=== PATIENT | male | born 1950 | race Caucasian/White ===

== ENCOUNTER 2016-11-25 08:38 | Inpatient (IN) ==
--- NOTE | 2016-11-22 21:49 | Discharge Summary ---
<Silvia Bah - Last Filed: 11/24/16 16:25> Date of Encounter: 11/24/16 - Discharge Diagnosis (1) Arthritis of knee, left Priority: Primary Status: Acute (2) History of DVT (deep vein thrombosis) Priority: Secondary Status: Acute Comments: Bridged with Lovenox and will continue Lovenox at discharge x 10 days along with resuming Coumadin (3) HTN (hypertension) Priority: Secondary Status: Chronic Qualifiers: Hypertension type: essential hypertension Qualified Code(s): I10 - Essential (primary) hypertension (4) DMII (diabetes mellitus, type 2) Priority: Secondary Status: Chronic Qualifiers: Diabetes mellitus complication status: with unspecified complications Diabetes mellitus fpc insulin use: with long term care administrator use Qualified Code(s) : E11.8 - Type 2 diabetes mellitus with unspecified complications; Z79.4 - USP (current) use of insulin (5) HLD (hyperlipidemia) Status: Acute (6) Obesity Priority: Secondary Status: Chronic Qualifiers: Obesity type: unspecified obesity type Obesity severity: morbid Qualified Code(s): E66.01 - Morbid (severe) obesity due to excess calories - Discharge Medications Home Medications: OxyCODONE Immed Rel [Roxicodone 5 MG] 5 - 10 mg PO Q6HR PRN #40 tablet 11/22/16 [Rx] Enoxaparin [Lovenox] 30 mg SQ Q12HR #20 syr 11/24/16 [Rx] Amlodipine Besylate 10 mg PO DAILY 11/25/16 [History] Aspirin Enteric Coated [Aspirin EC] 81 mg PO DAILY 11/25/16 [History] Atorvastatin Calcium [Lipitor] 20 mg PO DAILY 11/25/16 [History] Enoxaparin [Lovenox] 30 mg SQ Q12HR 11/25/16 [History] Furosemide [Lasix] 40 mg PO DAILY 11/25/16 [History] GlipiZIDE [Glipizide] 10 mg PO BID 11/25/16 [History] Insulin Glargine,Hum.rec.anlog [Lantus Solostar] 80 unit SQ HS 11/25/16 [History ] Meloxicam [Mobic] 15 mg PO DAILY 11/25/16 [History] Metformin HCl [Glucophage] 1,000 mg PO BID 11/25/16 [History] Multivitamin [One Daily Multivitamin] 1 each PO DAILY 11/25/16 [History] Valsartan [Diovan] 320 mg PO DAILY 11/25/16 [History] Warfarin [Coumadin] 10 mg PO SUTHFRSA 11/25/16 [History] Warfarin [Coumadin] 15 mg PO MOTUWE 11/25/16 [History] Allergies/Adverse Reactions: Allergies cephalexin [From Keflex] Adverse Reaction (Verified 11/25/16 10:03) Hives Penicillins [PCN] Adverse Reaction (Verified 11/25/16 10:03) Hives Primary care physician: Pramod Ordonez, - Patient Status Disposition: Transfer Inpatient Rehab Fac Condition: Good - Discharge Instructions Follow Up With: Pramod Ordonez DO [Primary Care Provider] - - Hospital Course Hospital course: Mr. Ledesma is a 66 year old male - Time Spent with Patient Total time spent providing and/or coordinating discharge services: <Thiago Sweeney - Last Filed: 11/28/16 06:45> Date of Encounter: 11/28/16 Time of Encounter: 06:44 - Discharge Diagnosis (1) Arthritis of knee, left Priority: Primary Status: Acute (2) HLD (hyperlipidemia) Priority: Secondary Status: Acute Qualifiers: Hyperlipidemia type: unspecified Qualified Code(s): E78.5 - Hyperlipidemia , unspecified (3) History of DVT (deep vein thrombosis) Priority: Secondary Status: Acute (4) DMII (diabetes mellitus, type 2) Priority: Secondary Status: Chronic Qualifiers: Diabetes mellitus complication status: with unspecified complications Diabetes mellitus long term care administrator insulin use: with long term care administrator use Qualified Code(s) : E11.8 - Type 2 diabetes mellitus with unspecified complications; Z79.4 - USP (current) use of insulin (5) HTN (hypertension) Priority: Secondary Status: Chronic Qualifiers: Hypertension type: essential hypertension Qualified Code(s): I10 - Essential (primary) hypertension (6) Obesity Priority: Secondary Status: Chronic Qualifiers: Obesity type: unspecified obesity type Obesity severity: morbid Qualified Code(s): E66.01 - Morbid (severe) obesity due to excess calories Primary care physician: Pramod Ordonez, - Patient Status Functional capacity at discharge: uses cane/walker Overall status at discharge: patient is progressing back to baseline - Hospital Course Hospital course: Mr. Ledesma is a 66 year old male uneventful postop, DC stable condition, patient on anticoagualtion for history of DVT - Time Spent with Patient Total time spent providing and/or coordinating discharge services:
--- NOTE | 2016-11-25 09:09 | History & Physical Report ---
Date of Encounter: 11/25/16 Time of Encounter: 09:07 24 Hour HP Update - Instructions Instructions: If the History and Physical is less than 30 days old and was completed prior to A.M. admission and or procedure and has NOT been updated on calendar day of procedure please complete this update prior to performing procedure. - Update Patient reports changes in Medical Condition: No Changes in assessment/condition: No Changes in Medication: No Preop tests/diagnostics Reviewed: Yes Surgery Remains Indicated: Yes Consent for Planned Operative Procedure(s) Verified: Yes - Pre-Operative Checklist Preoperative Checklist Indicated: No Prophylactic Antibiotic Ordered: Yes Is VTE Prophylaxis Indicated?: Yes (Patient was elevated A1c of 8.4 significant disabling knee pain risk of elevated A1c is minimal compared to patient's pain and suffering believe is acceptable risk to proceed with total knee replacement surgery.)
--- NOTE | 2016-11-25 09:22 | Anesthesia Evaluation PreOp ---
Date of Encounter: 11/25/16 Time of Encounter: 09:20 - Past History Planned Operation: L TKA Cardiac History: CHF (actos induced, resolved. 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 History: Denies Any Significant HX Other Medical History: Diabetes Type II, Other (factor V leiden) Anesthesia History: No Prior Anesthetic Complications, Past Anesthesia (t&a, cholecyst, r aleta) Alcohol Use: none Drug use: none Medications and Allergies OxyCODONE Immed Rel [Roxicodone 5 MG] 5 - 10 mg PO Q6HR PRN #40 tablet 11/22/16 [Rx] Enoxaparin [Lovenox] 30 mg SQ Q12HR #20 syr 11/24/16 [Rx] Allergies cephalexin [From Keflex] Adverse Reaction (Unverified 11/13/16 15:32) See Comments Penicillins [PCN] Adverse Reaction (Unverified 11/13/16 15:32) See Comments - Meds/Allergy Pre-op Review Medications Reviewed: Yes (coumadin off x 5days) Allergies Reviewed: Yes Beta Blockers on Current Med List: No Anesthesia Results - Labs Laboratory Tests 11/16/16 11/16/16 11/16/16 09:24 09:24 09:24 Hgb 16.0 Hct 47.6 Plt Count 224 PT 30.1 H INR 2.7 APTT 35.6 Sodium 141 Potassium 4.1 Creatinine 0.96 a1c 8.4 - Imaging EKG: report reviewed (sr, ivcd, pulm dz) Anesthesia Exam O2 Sat Height 1.8 m Height 1.8 m Weight 140.614 kg Weight 140.614 kg O2 Sat by Pulse Oximetry 92 Vital Signs Temp Pulse Resp BP Pulse Ox 98.6 F 96 18 138/74 92 L 11/25/16 09:18 11/25/16 09:18 11/25/16 09:18 11/25/16 09:18 11/25/16 09:18 Blood glucose: 249 Height: 1.8 Weight: 140 NPO (# of Hours): >8 - HEENT Pupil (Motor): Pupils equal, EOMI Mallampati: II Teeth: Poor dentition Oral Opening: Greater than 3 - CONTROL SYSTEMS DRAFTING OFFICER LOC: Oriented CONTROL SYSTEMS DRAFTING OFFICER Motor: Normal RUE, Normal LUE, Normal RLE, Normal LLE, Normal Face CONTROL SYSTEMS DRAFTING OFFICER Sensory: Normal: RUE, LUE, RLE, LLE, Face - Cardiac Rhythm: Regular Murmur: None - Pulmonary Breath Sounds: bilateral Clear Respiratory Effort: Symmetrical Anesthesia Assess/Plan ASA Score: 3 Modified Marisa Scale for Level of Consciousness: Cooperative, oriented, and tranquil Anesthetic Plan: General, Regional Monitoring Plan: Standard Monitors Recovery Plan: PACU
[2016-11-25] MEDS ORDERED: *HR* FentaNYL (PF) 100 MCG/2 ML VIAL ONE (09:35)
[2016-11-25] MEDS ORDERED: *HR* Propofol 200 MG/20 ML VIAL IVP ONE (09:35)
[2016-11-25] MEDS ORDERED: *HR* Midazolam HCl 2 MG/2 ML VIAL ONE (09:35)
[2016-11-25] MEDS ORDERED: Lidocaine -MPF 2% 2 ML VIAL ONE (09:36)
[2016-11-25] MEDS ORDERED: *HR* Succinylcholine 200 MG/10 ML VIAL IVP ONE (09:36)
[2016-11-25] MEDS ORDERED: Lidocaine 1% 20 ML MDV ID ONE (09:42)
[2016-11-25] MEDS ORDERED: Clindamycin 900 MG/50 ML 900 MG/50 ML IV.SOLN IVPB ONE (09:42)
[2016-11-25] MEDS ORDERED: Ringers Solution, Lactated 1,000 ML IVC SCH ×3 (09:45→13:37)
[2016-11-25] MEDS ORDERED: ROPIVACAINE HCL/PF 0.5% 30 ML VIAL ONE (09:57)
[2016-11-25] MEDS ORDERED: Bupivacaine/Clonidine Syringe 1 EACH SYRINGE ONE (09:58)
--- NOTE | 2016-11-25 10:53 | Anesthesia Procedures ---
Date of Encounter: 11/25/16 Time of Encounter: 10:40 Procedures: Anesthesia - Nerve Block Procedure Date: 11/25/16 Time: 08:40 Checklist: Correct Patient Identifier, Correct procedure, History checked Correct side: Left Blood Thinner: No Monitor Applied: EKG, BP, Pulse Oximetry Supplemental Oxygen via Nasal Cannula (L/min): 2 Sedation: Versed (mg): 2 Sedation: Fentanyl (mcg): 2 Indication: Post Op Analgesia Block Type: Femoral, Other (IPACK) Catheter placed: No Sterile Technique: Yes Ultrasound used: Yes Anatomy identified: Yes Visual spread of Local: Yes Nerve Stimulator Range: 0.2 - 0.4 mA Blood on Needle Aspiration: No Smooth Injection of Local: Yes Pain with Injection of Local: No Prep: Chlorhexadine Needle: 22 x 50 mm Stimuplex, 21 x 100 mm Stimuplex Local: 0.25% Bupivicaine w/Clonidine 20 mcg/cc (30 cc), Ropivacaine (30 cc) Complications: None/effective block Vitals: VSS
[2016-11-25] MEDS ORDERED: *HR* Labetalol 100 MG/20 ML MDV IVP PRN (11:10)
[2016-11-25] MEDS ORDERED: Ondansetron 4 MG/2 ML VIAL IVP ONE (11:10)
--- NOTE | 2016-11-25 11:57 | Orthopedic Operative Note ---
Date of procedure: 11/25/16 Pre-op diagnosis: Left knee arthritis left knee instability Post-op diagnosis: same Procedure: Procedure: Left Total knee replacement Estimated blood loss: 200 cc Hardware: Biomet Femur: 75, 18 x 120 Tibia: 83, 16 x 80 Kelly insert: 20 Patella: 40 Exam Under anesthesia: Full flexion full extension significant varus valgus instability. Procedural Notes: Grade 4 arthritic changes in all 3 compartments. Operative procedure: The patient was brought to the operating room and placed on the operating room table. After general anesthesia was administered the operative knee was examined. Findings were noted in the exam under anesthesia. The operative extremity was prepped and draped in sterile surgical fashion. The patient received IV antibiotics prior to skin incision. A standard midline incision was made centered over the patella. The incision was made through the skin and subcutaneous tissue. A medial parapatellar tendon approach was performed. Care was taken to preserve tissue along the medial aspect of the patella. And to protect the patella tendon. The deep MCL was released off the medial tibia. The infra patella fat pad was excised. Knee was brought into flexion. Patient noted to have grade 4 arthritic changes all 3 compartments. The entry hole was made for the intramedullary femoral guide. The guide was seated in 6 degrees of valgus. Anterior cut was made followed by the distal cut. The ACL the PCL the medial and the lateral menisci were excised. The tibia was subluxed forward. The entry hole was made for the intramedullary tibial guide. Guide was seated to resect 2 mm off the more abnormal side. The knee was brought into flexion the distal femur was sized to a 75. The femur was first reamed . It was reamed up to a 18 x 120. The femoral guide was seated, the anterior cut was made followed by the posterior condylar cut, followed by the chamfer cuts. The finishing guide was seated the box cut was made. The tibia was sized to a 83 The tibia was first reamed up to a size 10 x 80. Trial reduction revealed full extension no varus valgus instability with the appropriate 20 insert. The patella was everted and cut was made at the level of the insertion of the quadriceps and patella tendon. The patella was sized to a 40 the guide was seated and the lug holes are drilled. Trial reduction revealed excellent patella tracking. All trial components were removed all bony surfaces were irrigated. Components were assembled on the back table. The femur was cemented first followed by the tibia. The 20 Kelly was seated and secured. The knee was brought into full extension. The patella was cemented and held in place with the patellar holding clamp. After the cement had hardened, the knee sat for 2 minutes with a Betadine saline solution. The knee was then irrigated out with 2 L of pulse irrigation. The extensor mechanism was closed with #2 FiberWire suture and #2 PDS suture. The subcutaneous tissue was then irrigated and closed deep with #1 PDS suture superficially with 0 PDS suture and skin was closed skin ronn The patient was then placed in a sterile dressing and a postoperative brace extubated and transferred to recovery room in stable condition. Anesthesia: PACHECO Surgeon: Thiago Sweeney [employer] Host: Silvia Bah Condition: stable Disposition: PACU
[2016-11-25] MEDS ORDERED: Ketorolac 30 MG/ML VIAL ONE (12:15)
[2016-11-25] MEDS ORDERED: Ondansetron 4 MG/2 ML VIAL ONE (12:15)
[2016-11-25] MEDS ORDERED: *HR* Morphine 10 MG/ML VIAL ONE (12:18)
[2016-11-25] MEDS ORDERED: *HR* HYDROmorphone (PF) 1 MG/ML SYRINGE ONE (12:38)
[2016-11-25] MEDS: *HR* HYDROmorphone (PF) 1 MG/ML SYRINGE IVP PRN ×2 (12:40→12:45)
--- NOTE | 2016-11-25 13:05 | Anesthesia Evaluation Post Op ---
Date of Encounter: 11/25/16 Time of Encounter: 13:04 - Vital Signs Vital Signs: Vital Signs/O2 Sat/Glucose, Most Current Temp Pulse Resp BP Pulse Ox 11/25/16 12:56 97.0 F L 82 16 93/78 97 11/25/16 12:46 73 16 105/63 96 11/25/16 12:36 81 16 114/43 96 11/25/16 12:26 97.3 F L 86 18 110/66 93 L 11/25/16 10:46 89 16 128/62 95 11/25/16 10:20 98 16 148/78 97 11/25/16 09:18 98.6 F 96 18 138/74 92 L - Lungs Lungs: Clear Ascult./Percussion - Airway Airway: Non-obstructed - Cardiovascular Regular Rate - Mental Status Mental Status: Alert & Oriented, Answers Appropriately - Pain Pain Scale: 3 - Nausea Vomiting Nausea Vomiting: Not Present - Hydration Hydration: Tolerates oral liquids - Discharge PostOp Status: Transfer Patient to floor
[2016-11-25] MEDS ORDERED: Naloxone 0.4 MG/ML INJ IVP PRN (13:37)
[2016-11-25] MEDS ORDERED: Ondansetron 4 MG/2 ML VIAL IVP PRN (13:37)
[2016-11-25] MEDS ORDERED: Dextrose Gel 15 GM PO PRN ×2 (13:37)
[2016-11-25] MEDS ORDERED: D5% in Water 1,000 ML IV PRN (13:37)
[2016-11-25] MEDS ORDERED: Temazepam 15 MG CAPSULE PO PRN (13:37)
[2016-11-25] MEDS ORDERED: MOM Conc 10 ML UD.LIQ PO PRN (13:37)
[2016-11-25] MEDS ORDERED: *HR* Dextrose 50 % in Water (Syg) 50 ML SYRINGE IVP PRN (13:37)
[2016-11-25] MEDS ORDERED: *HR* Warfarin 5 MG TABLET PO SCH (13:37)
[2016-11-25] MEDS ORDERED: Sennosides 8.6 MG TABLET PO PRN (13:37)
[2016-11-25] MEDS ORDERED: Acetaminophen 325 MG TABLET PO PRN (13:37)
[2016-11-25] MEDS: Insulin LISPRO 300 UNITS/3 ML VIAL SQ SCH ×2 (14:29→17:25)
[2016-11-25] MEDS: *HR* OxyCODONE Immed Rel 5 MG TABLET PO PRN (15:23)
[2016-11-25] MEDS: *HR* Enoxaparin 30 MG/0.3 ML SYRINGE SQ SCH (17:26)
[2016-11-25] MEDS ORDERED: *HR* Enoxaparin 30 MG/0.3 ML SYRINGE SQ SCH (18:00)
[2016-11-25] MEDS: Insulin DETEMIR 100 UNIT/ML X5UNITS SQ SCH (20:05)
[2016-11-25] MEDS: Clindamycin 900 MG/50 ML 900 MG/50 ML IV.SOLN IVPB SCH (20:07)
[2016-11-25] MEDS: *HR* Metformin 500 MG TABLET PO SCH (20:09)
[2016-11-25] MEDS: *HR* GlipiZIDE 5 MG TABLET PO SCH (20:09)
[2016-11-26] MEDS: Clindamycin 900 MG/50 ML 900 MG/50 ML IV.SOLN IVPB SCH (02:23)
[2016-11-26] MEDS: *HR* OxyCODONE Immed Rel 5 MG TABLET PO PRN ×3 (03:34→15:46)
[2016-11-26 05:40] LABS: Hematocrit 39.2 % (37.5-50.1)
[2016-11-26 05:43] LABS: INR 1.2; Prothrombin Time 13.2 Seconds (9.4-12.1)
[2016-11-26 05:57] LABS: BUN/Creatinine Ratio 29 (6-26); Blood Urea Nitrogen 39 mg/dL (8-26); Calcium 8.3 mg/dL (8.6-10.8); Carbon Dioxide 27 mEq/L (19-29); Chloride 102 mEq/L (98-109); Glucose 208 mg/dL (70-99); Osmolality,Calculated 301 (280-300); Potassium 4.5 mEq/L (3.5-4.5); Sodium 138 mEq/L (136-145); eGFR For African Americans > 60 (> 60); eGFR For Non-African Americans 53 (> 60)
[2016-11-26] MEDS: *HR* Enoxaparin 30 MG/0.3 ML SYRINGE SQ SCH ×2 (06:15→17:08)
[2016-11-26] MEDS: Valsartan 160 MG TABLET PO SCH (08:04)
[2016-11-26] MEDS: amLODIPine 5 MG TABLET PO SCH (08:05)
[2016-11-26] MEDS: *HR* GlipiZIDE 5 MG TABLET PO SCH ×2 (08:05→21:14)
[2016-11-26] MEDS: *HR* Metformin 500 MG TABLET PO SCH ×2 (08:05→21:14)
[2016-11-26] MEDS: Multivit/Ca/Min/Fe/FA 1 TAB TABLET PO SCH (08:05)
[2016-11-26] MEDS: Furosemide 40 MG TABLET PO SCH (08:05)
[2016-11-26] MEDS: Aspirin Enteric Coated 81 MG Tablet PO SCH (08:05)
--- NOTE | 2016-11-26 08:38 | Orthopedics Progress Note ---
Date of Encounter: 11/26/16 Time of Encounter: 08:37 - Assessment and Plan (1) Arthritis of knee, left Current Visit: Yes Status: Acute (2) HLD (hyperlipidemia) Current Visit: Yes Status: Acute Qualifiers: Hyperlipidemia type: unspecified Qualified Code(s): E78.5 - Hyperlipidemia , unspecified (3) History of DVT (deep vein thrombosis) Current Visit: Yes Status: Acute (4) DMII (diabetes mellitus, type 2) Current Visit: Yes Status: Chronic Qualifiers: Diabetes mellitus complication status: with unspecified complications Diabetes mellitus local company intermodal truck driver insulin use: with residential use Qualified Code(s) : E11.8 - Type 2 diabetes mellitus with unspecified complications; Z79.4 - technician terminal and repeater (current) use of insulin (5) HTN (hypertension) Current Visit: Yes Status: Chronic Qualifiers: Hypertension type: essential hypertension Qualified Code(s): I10 - Essential (primary) hypertension (6) Obesity Current Visit: Yes Status: Chronic Qualifiers: Obesity type: unspecified obesity type Obesity severity: morbid Qualified Code(s): E66.01 - Morbid (severe) obesity due to excess calories Subjective Interval history: Patient was seen this morning doing well without complaints. Afebrile vital signs stable. Operative extremity: Neurovascularly intact Dressing clean dry and intact Calves nontender Assessment and plan: Continue with postoperative care Objective Vital signs: Vital Signs Temp Pulse Resp BP Pulse Ox 11/26/16 06:55 98.0 F 92 16 130/60 96 11/26/16 04:17 98.0 F 85 16 132/70 96 11/26/16 01:20 97.8 F 92 16 122/70 97 11/25/16 21:20 98.4 F 63 16 123/62 95 11/25/16 20:23 93 L 11/25/16 16:47 98.0 F 82 12 131/69 97 11/25/16 15:40 97.8 F 85 13 115/58 96 11/25/16 14:49 98.4 F 82 14 120/65 98 11/25/16 14:11 97.8 F 79 16 113/54 98 11/25/16 13:39 98.1 F 80 14 104/59 99 11/25/16 13:16 97.1 F L 76 16 99/60 96 11/25/16 13:06 78 16 98/55 97 11/25/16 12:56 97.0 F L 82 16 93/78 97 11/25/16 12:46 73 16 105/63 96 11/25/16 12:36 81 16 114/43 96 11/25/16 12:26 97.3 F L 86 18 110/66 93 L 11/25/16 10:46 89 16 128/62 95 11/25/16 10:20 98 16 148/78 97 11/25/16 09:18 98.6 F 96 18 138/74 92 L Intake and Output 11/25/16 11/26/16 11/26/16 23:59 07:59 15:59 Intake Total 50 / 50 50 / 50 Output Total 300 / 300 Balance -250 / -250 50 / 50 Intake: IV Fluids 50 / 50 50 / 50 Cleocin 900 MG/50 ML 900 50 / 50 50 / 50 mg In 50 ml @ 50 mls/hr IVPB Q8H BRY Rx#: [id number] Output: Urine 300 / 300 Other: Blood Glucose* 376 198 - Labs CBC & BMP: 11/26/16 05:06 11/26/16 05:06 Labs: Abnormal lab results PT 13.2 Seconds (9.4-12.1) H 11/26/16 05:06 BUN 39 mg/dL (8-26) H 11/26/16 05:06 Creatinine 1.35 mg/dL (0.72-1.25) H 11/26/16 05:06 Est GFR (Non-Af Amer) 53 (> 60) L 11/26/16 05:06 BUN/Creatinine Ratio 29 (6-26) H 11/26/16 05:06 Glucose 208 mg/dL (70-99) H 11/26/16 05:06 POC Glucose 376 (58-89) H 11/25/16 21:25 Calculated Osmolality 301 (280-300) H 11/26/16 05:06 Calcium 8.3 mg/dL (8.6-10.8) L 11/26/16 05:06 - VTE Documentation of Mechanical Device: Venous foot pump, device Consult Discharge Plan - Plan Referrals: Pramod Ordonez DO [Primary Care Provider] -
[2016-11-26] MEDS: Insulin LISPRO 300 UNITS/3 ML VIAL SQ SCH ×4 (08:42→21:14)
[2016-11-26] MEDS: *HR* Warfarin 5 MG TABLET PO SCH (11:53)
[2016-11-26] MEDS: *HR* HYDROmorphone (PF) 1 MG/ML SYRINGE IVP PRN (17:07)
[2016-11-26] MEDS: Insulin DETEMIR 100 UNIT/ML X5UNITS SQ SCH (21:14)
[2016-11-27] MEDS: *HR* OxyCODONE Immed Rel 5 MG TABLET PO PRN ×3 (03:05→16:21)
[2016-11-27 04:48] LABS: Hematocrit 34.5 % (37.5-50.1); Hemoglobin 11.7 g/dL (12.9-16.9)
[2016-11-27 04:53] LABS: INR 1.8
[2016-11-27 05:00] LABS: Potassium 3.7 mEq/L (3.5-4.5)
[2016-11-27] MEDS: *HR* Enoxaparin 30 MG/0.3 ML SYRINGE SQ SCH ×2 (06:56→16:22)
--- NOTE | 2016-11-27 08:38 | Orthopedics Progress Note ---
Date of Encounter: 11/27/16 Time of Encounter: 08:38 - Assessment and Plan (1) Arthritis of knee, left Current Visit: Yes Status: Acute (2) HLD (hyperlipidemia) Current Visit: Yes Status: Acute Qualifiers: Hyperlipidemia type: unspecified Qualified Code(s): E78.5 - Hyperlipidemia , unspecified (3) History of DVT (deep vein thrombosis) Current Visit: Yes Status: Acute (4) DMII (diabetes mellitus, type 2) Current Visit: Yes Status: Chronic Qualifiers: Diabetes mellitus complication status: with unspecified complications Diabetes mellitus moth exterminator insulin use: with mcc use Qualified Code(s) : E11.8 - Type 2 diabetes mellitus with unspecified complications; Z79.4 - long term (current) use of insulin (5) HTN (hypertension) Current Visit: Yes Status: Chronic Qualifiers: Hypertension type: essential hypertension Qualified Code(s): I10 - Essential (primary) hypertension (6) Obesity Current Visit: Yes Status: Chronic Qualifiers: Obesity type: unspecified obesity type Obesity severity: morbid Qualified Code(s): E66.01 - Morbid (severe) obesity due to excess calories Subjective Interval history: Patient was seen this morning doing well without complaints. Afebrile vital signs stable. Operative extremity: Neurovascularly intact Dressing clean dry and intact Calves nontender Assessment and plan: Continue with postoperative care hct 34 Objective Vital signs: Vital Signs Temp Pulse Resp BP Pulse Ox 11/27/16 06:30 99.1 F 83 18 121/62 93 L 11/27/16 03:52 98.9 F 107 16 168/79 94 L 11/27/16 01:44 99.0 F 94 16 137/69 93 L 11/26/16 18:59 98.5 F 107 17 116/64 92 L 11/26/16 15:37 98.5 F 98 16 116/67 94 L 11/26/16 11:38 98.1 F 86 16 129/70 94 L Intake and Output 11/26/16 11/27/16 11/27/16 23:59 07:59 15:59 Other: Blood Glucose* 261 194 - Labs CBC & BMP: 11/27/16 04:27 11/27/16 04:27 Labs: Abnormal lab results Hgb 11.7 g/dL (12.9-16.9) L 11/27/16 04:27 Hct 34.5 % (37.5-50.1) L 11/27/16 04:27 PT 20.0 Seconds (9.4-12.1) H D 11/27/16 04:27 BUN 51 mg/dL (8-26) H D 11/27/16 04:27 Creatinine 1.94 mg/dL (0.72-1.25) H 11/27/16 04:27 Est GFR ( Amer) 42 (> 60) L 11/27/16 04:27 Est GFR (Non-Af Amer) 35 (> 60) L 11/27/16 04:27 Glucose 198 mg/dL (70-99) H 11/27/16 04:27 POC Glucose 261 (58-89) H 11/26/16 21:05 Calculated Osmolality 301 (280-300) H 11/27/16 04:27 Calcium 8.0 mg/dL (8.6-10.8) L 11/27/16 04:27 - VTE Documentation of Mechanical Device: Venous foot pump, device Consult Discharge Plan - Plan Referrals: Pramod Ordonez DO [Primary Care Provider] -
[2016-11-27] MEDS: Insulin LISPRO 300 UNITS/3 ML VIAL SQ SCH ×4 (08:40→19:50)
[2016-11-27] MEDS: Aspirin Enteric Coated 81 MG Tablet PO SCH (08:41)
[2016-11-27] MEDS: Valsartan 160 MG TABLET PO SCH (08:41)
[2016-11-27] MEDS: *HR* Metformin 500 MG TABLET PO SCH (08:41)
[2016-11-27] MEDS: Furosemide 40 MG TABLET PO SCH (08:42)
[2016-11-27] MEDS: *HR* GlipiZIDE 5 MG TABLET PO SCH ×2 (08:42→19:50)
[2016-11-27] MEDS: amLODIPine 5 MG TABLET PO SCH (08:43)
[2016-11-27] MEDS: Multivit/Ca/Min/Fe/FA 1 TAB TABLET PO SCH (08:44)
[2016-11-27] MEDS: *HR* HYDROmorphone (PF) 1 MG/ML SYRINGE IVP PRN (10:57)
[2016-11-27] MEDS: *HR* Warfarin 5 MG TABLET PO SCH (10:57)
[2016-11-27] MEDS: Insulin DETEMIR 100 UNIT/ML X5UNITS SQ SCH (19:50)
[2016-11-28] MEDS: *HR* Enoxaparin 30 MG/0.3 ML SYRINGE SQ SCH (06:06)
[2016-11-28 06:18] LABS: Prothrombin Time 22.4 Seconds (9.4-12.1)
[2016-11-28] MEDS: *HR* OxyCODONE Immed Rel 5 MG TABLET PO PRN ×2 (06:31→10:32)
--- NOTE | 2016-11-28 06:46 | Orthopedics Progress Note ---
Date of Encounter: 11/28/16 Time of Encounter: 06:45 - Assessment and Plan (1) Arthritis of knee, left Current Visit: Yes Status: Acute (2) HLD (hyperlipidemia) Current Visit: Yes Status: Acute Qualifiers: Hyperlipidemia type: unspecified Qualified Code(s): E78.5 - Hyperlipidemia , unspecified (3) History of DVT (deep vein thrombosis) Current Visit: Yes Status: Acute (4) DMII (diabetes mellitus, type 2) Current Visit: Yes Status: Chronic Qualifiers: Diabetes mellitus complication status: with unspecified complications Diabetes mellitus watermaster insulin use: with retirement use Qualified Code(s) : E11.8 - Type 2 diabetes mellitus with unspecified complications; Z79.4 - termite control technician (current) use of insulin (5) HTN (hypertension) Current Visit: Yes Status: Chronic Qualifiers: Hypertension type: essential hypertension Qualified Code(s): I10 - Essential (primary) hypertension (6) Obesity Current Visit: Yes Status: Chronic Qualifiers: Obesity type: unspecified obesity type Obesity severity: morbid Qualified Code(s): E66.01 - Morbid (severe) obesity due to excess calories Subjective Interval history: Patient was seen this morning doing well without complaints. Afebrile vital signs stable. Operative extremity: Neurovascularly intact Dressing clean dry and intact Calves nontender Assessment and plan: Continue with postoperative care dc today Objective Vital signs: Vital Signs Temp Pulse Resp BP Pulse Ox 11/28/16 00:21 98.8 F 102 18 147/65 94 L 11/27/16 20:55 97.9 F 90 16 130/57 92 L 11/27/16 14:49 99.3 F 105 18 112/71 93 L 11/27/16 13:18 95 11/27/16 11:28 98.9 F 101 18 116/61 95 Intake and Output 11/27/16 11/27/16 11/28/16 15:59 23:59 07:59 Intake Total 200 / 200 120 / 120 450 / 450 Output Total 300 / 300 800 / 800 525 / 525 Balance -100 / -100 -680 / -680 -75 / -75 Intake: Oral 200 / 200 120 / 120 450 / 450 Output: Urine 300 / 300 800 / 800 525 / 525 Other: Meal Breakfast Dinner Percent of Meal Consumed 100% 100% Blood Glucose* 212 206 - Labs CBC & BMP: 11/27/16 04:27 11/27/16 04:27 Labs: Abnormal lab results Hgb 11.7 g/dL (12.9-16.9) L 11/27/16 04:27 Hct 34.5 % (37.5-50.1) L 11/27/16 04:27 PT 22.4 Seconds (9.4-12.1) H 11/28/16 05:22 BUN 51 mg/dL (8-26) H D 11/27/16 04:27 Creatinine 1.94 mg/dL (0.72-1.25) H 11/27/16 04:27 Est GFR ( Amer) 42 (> 60) L 11/27/16 04:27 Est GFR (Non-Af Amer) 35 (> 60) L 11/27/16 04:27 Glucose 198 mg/dL (70-99) H 11/27/16 04:27 POC Glucose 206 (58-89) H 11/27/16 19:50 Calculated Osmolality 301 (280-300) H 11/27/16 04:27 Calcium 8.0 mg/dL (8.6-10.8) L 11/27/16 04:27 - VTE Documentation of Mechanical Device: Venous foot pump, device Consult Discharge Plan - Plan Referrals: Pramod Ordonez DO [Primary Care Provider] -
[2016-11-28] MEDS: *HR* GlipiZIDE 5 MG TABLET PO SCH (08:00)
[2016-11-28] MEDS: Valsartan 160 MG TABLET PO SCH (08:00)
[2016-11-28] MEDS: Furosemide 40 MG TABLET PO SCH (08:01)
[2016-11-28] MEDS: Insulin LISPRO 300 UNITS/3 ML VIAL SQ SCH ×2 (08:01→11:34)
[2016-11-28] MEDS: Aspirin Enteric Coated 81 MG Tablet PO SCH (08:01)
[2016-11-28] MEDS: amLODIPine 5 MG TABLET PO SCH (08:01)
[2016-11-28] MEDS: Multivit/Ca/Min/Fe/FA 1 TAB TABLET PO SCH (08:08)
[2016-11-28] MEDS: *HR* Warfarin 5 MG TABLET PO SCH (10:35)
[2016-11-28 10:50] VITALS: BP 129/70
== END 2016-11-28 15:12 | DRG 470 ==
LOC: SAMDAY 08:38 → 3NENU 13:41
PROVIDERS: ADMIT Orthopaedic Surgery; ATTEND Orthopaedic Surgery

== ENCOUNTER 2017-03-17 08:27 | Inpatient (IN) ==
--- NOTE | 2017-03-16 16:22 | Discharge Summary ---
<Gladis Delacruz E - Last Filed: 03/16/17 16:19> Date of Encounter: 03/16/17 - Discharge Diagnosis (1) Arthritis of right knee Priority: Primary Status: Chronic (2) Factor V Leiden Priority: Secondary Status: Chronic (3) CHF (congestive heart failure) Priority: Secondary Status: Chronic Qualifiers: Congestive heart failure type: unspecified congestive heart failure type Congestive heart failure chronicity: unspecified congestive heart failure chronicity Qualified Code(s): I50.9 - Heart failure, unspecified (4) HTN (hypertension) Priority: Secondary Status: Chronic Qualifiers: Hypertension type: essential hypertension (5) HLD (hyperlipidemia) Priority: Secondary Status: Chronic Qualifiers: Hyperlipidemia type: unspecified (6) History of pulmonary embolism Priority: Secondary Status: Chronic (7) History of DVT (deep vein thrombosis) Status: Acute - Discharge Medications Home Medications: Amlodipine Besylate 10 mg PO DAILY 11/25/16 [History] Aspirin Enteric Coated [Aspirin EC] 81 mg PO DAILY 11/25/16 [History] Atorvastatin Calcium [Lipitor] 20 mg PO DAILY 11/25/16 [History] Furosemide [Lasix] 40 mg PO DAILY 11/25/16 [History] Insulin Glargine,Hum.rec.anlog [Lantus Solostar] 80 unit SQ HS 11/25/16 [History ] Metformin HCl [Glucophage] 1,000 mg PO BID 11/25/16 [History] Multivitamin [One Daily Multivitamin] 1 each PO DAILY 11/25/16 [History] Valsartan [Diovan] 320 mg PO DAILY 11/25/16 [History] Warfarin [Coumadin] 10 mg PO SUTHFRSA 11/25/16 [History] Warfarin [Coumadin] 15 mg PO MOTUWE 11/25/16 [History] glipiZIDE [Glipizide] 10 mg PO BID 11/25/16 [History] Enoxaparin [Lovenox] 30 mg SQ Q12HR #10 syr 03/17/17 [Rx] OxyCODONE Immed Rel [Roxicodone 5 MG] 5 - 10 mg PO Q6HR PRN #40 tablet 03/17/17 [Rx] Allergies/Adverse Reactions: Allergies cephalexin [From Keflex] Allergy (Verified 03/17/17 09:38) Hives Penicillins [PCN] Allergy (Verified 03/17/17 09:38) Hives meloxicam Adverse Reaction (Verified 03/17/17 09:38) See Comments causes lymphedema pioglitazone [From Actos] Adverse Reaction (Verified 03/17/17 09:38) See Comments retains water Primary care physician: Pramod Ordonez, - Patient Status Disposition: Transfer Hospital Swing Bed Condition: Good - Discharge Instructions Follow Up With: Pramod Ordonez DO [Primary Care Provider] - Gladis Delacruz PAC [Physician Baker Operator Automatic] - 03/30/17 2:00 pm Additional Instructions: Discharge Instructions: Total Knee Replacement Please call [facility] ([phone]), your Primary Care Physician, or report to the Emergency Room if you have any of the following symptoms: Nausea, vomiting, fever greater that 101.5, swelling, chest pain, shortness of breath, increased pain/redness/drainage/odor for your incision site, numbness/ tingling, or any other concerning symptoms. ACTIVITY:Weight-bearing as tolerated. You may progress off support (crutches or walker) as tolerated. MEDICATIONS: Upon discharge resume your home medications. Take all the medications as prescribed. Take a stool softener if taking narcotic pain medications. Stool softeners are only effective if you drink enough fluids. Drink 6-8 glass of water or fluids a day, unless this is not allowed for another health problem. Despite using stool softeners, if you haven't had a bowel movement in 3 days, please switch to a gentle laxative. Gentle laxatives are sold over the counter. You should have a bowel movement within 24 hours, if not call the office. You will be discharged from the hospital with a prescription for pain medication. You are encouraged to decrease the use of narcotic pain medication as tolerated. Should you require a refill, please call the office. [facility] prescribes narcotic pain medication for only 4-6 weeks after surgery. If you require pain medication beyond this time period, you may be referred to your Primary Care Physician or to the Pain Clinic for further evaluation. Plan ahead for refills on pain medication as many narcotics either need to be picked up at the office or mailed. It is best to call 48-72 hours in advance of needing a prescription refill so you don't run out of medication. To help control the post-operative pain, you may take NSAIDs (Aleve,Advil, Motrin, Ibuprofen, Naprosyn) or Tylenol as prescribed on the bottle in addition to the pain medication. ANTICOAGULATION (blood thinners): Continue your Aspirin, Lovenox or Coumadin as prescribed to help prevent a blood clot in the leg or in the lungs. As long as your incision remains dry and you tolerate the NSAIDs (Aleve, Advil, Motrin, ibuprofen, naprosyn), it is OK to use the NSAIDS while you are taking your anticoagulation medication. Should your incision start to drain, stop the NSAID and contact our office. Common symptoms of blood clot in the legs include: localized pain, swelling, calf tenderness, redness or discoloration of the skin. Blood clot in the lung symptoms include: shortness of breath, rapid pulse, sweating, and chest pain that worsens with deep breathing, coughing up blood, lightheadedness, feelings of anxiety. If you experience any of these symptoms notify your physician immediately, go to the emergency room, or if having trouble breathing, call 911. WOUND CARE: Leave the dressing on for 7 to 10days. You may change the dressing if it becomes saturated greater than 50%. Do not get the dressing wet at anytime. Wash your hands with antibacterial soap, rinse and dry prior to any wound care. If you have ronn the visiting nurse or rehab facility can remove the stapes 10-14 days after surgery and place steri-strips across the wound. Leave the steri-strips in place until they fall off on their won. You may let water from the shower run on top of the steri-strips. If you do not have a visiting nurse or rehab facility, you will need to return to the office at 10-14 days for the ronn to be removed. If you have itching or redness around the dressing call the office. FOLLOW-UP: Please follow up with your surgeon in the orthopedic clinic in 4 weeks from the day of surgery. If you have ronn that need to be removed, you will need to come back to the office in 10-14 days from the day of surgery. - Hospital Course Hospital course: Mr. Ledesma is a 66 year old male - Time Spent with Patient Total time spent providing and/or coordinating discharge services: <Silvia Bah - Last Filed: 03/17/17 10:03> Date of Encounter: 03/17/17 - Discharge Diagnosis (1) Factor V Leiden Status: Chronic Comments: Plan to resume Warfarin at discharge, at prior scheduled dose. Will bridge with Lovenox for 5 days at discharge. Will need repeat PT/INR at discharge* Primary care physician: Pramod Ordonez, - Hospital Course Hospital course: Mr. Ledesma is a 66 year old male - Time Spent with Patient Total time spent providing and/or coordinating discharge services: <PatelThiagocindi Santosh - Last Filed: 03/22/17 17:02> Date of Encounter: 03/22/17 Time of Encounter: 17:01 - Discharge Diagnosis (1) History of DVT (deep vein thrombosis) Priority: Secondary Status: Chronic (2) HTN (hypertension) Priority: Secondary Status: Chronic Qualifiers: Hypertension type: unspecified secondary hypertension Qualified Code(s): I15.9 - Secondary hypertension, unspecified; I15 - Secondary hypertension (3) DMII (diabetes mellitus, type 2) Priority: Secondary Status: Chronic Qualifiers: Diabetes mellitus complication status: with unspecified complications Diabetes mellitus chcf insulin use: with chcf use Qualified Code(s) : E11.8 - Type 2 diabetes mellitus with unspecified complications; Z79.4 - long term care social worker (current) use of insulin (4) HLD (hyperlipidemia) Priority: Secondary Status: Chronic Qualifiers: Hyperlipidemia type: unspecified Qualified Code(s): E78.5 - Hyperlipidemia , unspecified (5) Obesity Priority: Secondary Status: Chronic Qualifiers: Obesity type: unspecified obesity type Obesity severity: morbid Qualified Code(s): E66.01 - Morbid (severe) obesity due to excess calories (6) Arthritis of right knee Priority: Primary Status: Chronic (7) Factor V Leiden Priority: Secondary Status: Chronic (8) History of pulmonary embolism Priority: Secondary Status: Chronic (9) CHF (congestive heart failure) Priority: Secondary Status: Chronic Qualifiers: Congestive heart failure type: unspecified congestive heart failure type Congestive heart failure chronicity: unspecified congestive heart failure chronicity Qualified Code(s): I50.9 - Heart failure, unspecified Primary care physician: Pramod Ordonez, - Patient Status Functional capacity at discharge: uses cane/walker Overall status at discharge: patient is back to baseline - Hospital Course Hospital course: Mr. Leedsma is a 66 year old male Status post total knee replacement uneventful postoperative course discharged to extended care facility received antibiotics and physical therapy. - Time Spent with Patient Total time spent providing and/or coordinating discharge services:
[2017-03-17] MEDS: Ringers Solution, Lactated 1,000 ML IVC SCH ×2 (08:53→14:17)
--- NOTE | 2017-03-17 09:34 | Anesthesia Evaluation PreOp ---
Date of Encounter: 03/17/17 Time of Encounter: 09:32 - Past History Planned Operation: r tka Cardiac History: CHF, HTN, Hyperlipidemia Pulmonary History: Other (pe) UNDERWEAR FINISHER History: Other (tremors) Other Medical History: Diabetes Type II, Other (factor V leiden, chronic dvt) Anesthesia History: No Prior Anesthetic Complications, Past Anesthesia (l tka, t &a, r aleta, cholecyst) Alcohol Use: none Drug use: none Medications and Allergies OxyCODONE Immed Rel [Roxicodone 5 MG] 5 - 10 mg PO Q6HR PRN #40 tablet 11/22/16 [Rx] Enoxaparin [Lovenox] 30 mg SQ Q12HR #20 syr 11/24/16 [Rx] Amlodipine Besylate 10 mg PO DAILY 11/25/16 [History] Aspirin Enteric Coated [Aspirin EC] 81 mg PO DAILY 11/25/16 [History] Atorvastatin Calcium [Lipitor] 20 mg PO DAILY 11/25/16 [History] Enoxaparin [Lovenox] 30 mg SQ Q12HR 11/25/16 [History] Furosemide [Lasix] 40 mg PO DAILY 11/25/16 [History] Insulin Glargine,Hum.rec.anlog [Lantus Solostar] 80 unit SQ HS 11/25/16 [History ] Meloxicam [Mobic] 15 mg PO DAILY 11/25/16 [History] Metformin HCl [Glucophage] 1,000 mg PO BID 11/25/16 [History] Multivitamin [One Daily Multivitamin] 1 each PO DAILY 11/25/16 [History] Valsartan [Diovan] 320 mg PO DAILY 11/25/16 [History] Warfarin [Coumadin] 10 mg PO SUTHFRSA 11/25/16 [History] Warfarin [Coumadin] 15 mg PO MOTUWE 11/25/16 [History] glipiZIDE [Glipizide] 10 mg PO BID 11/25/16 [History] Allergies cephalexin [From Keflex] Allergy (Verified 03/10/17 15:50) Hives Penicillins [PCN] Allergy (Verified 03/10/17 15:50) Hives meloxicam Adverse Reaction (Verified 03/10/17 15:50) See Comments causes lymphedema pioglitazone [From Actos] Adverse Reaction (Verified 03/10/17 15:50) See Comments retains water - Meds/Allergy Pre-op Review Medications Reviewed: Yes (d/c coumadin x ) Allergies Reviewed: Yes Beta Blockers on Current Med List: Yes Anesthesia Results - Labs Laboratory Tests 03/10/17 03/10/17 03/10/17 16:02 16:02 16:02 Hgb 15.0 Hct 46.0 Plt Count 264 PT 23.8 H INR 2.2 APTT 36.2 H Sodium 139 Potassium 4.4 Creatinine 1.13 - Imaging EKG: report reviewed (sr, lad) Anesthesia Exam O2 Sat Height 1.78 m Height 1.78 m Height 1.78 m Weight 138.346 kg Weight 138.346 kg Weight 138.346 kg O2 Sat by Pulse Oximetry 95 Vital Signs Temp Pulse Resp BP Pulse Ox 98.2 F 101 18 135/85 95 03/17/17 08:53 03/17/17 08:53 03/17/17 08:53 03/17/17 08:53 03/17/17 08:53 Blood glucose: 209 Height: 1.78 Weight: 138 - HEENT Pupil (Motor): Pupils equal, EOMI Mallampati: II Teeth: Poor dentition Oral Opening: Greater than 3 - UNDERWEAR FINISHER LOC: Oriented UNDERWEAR FINISHER Motor: Normal RUE, Normal LUE, Normal RLE, Normal LLE, Normal Face UNDERWEAR FINISHER Sensory: Normal: RUE, LUE, RLE, LLE, Face - Cardiac Rhythm: Regular Murmur: None - Pulmonary Breath Sounds: bilateral Clear Respiratory Effort: Symmetrical Anesthesia Assess/Plan ASA Score: 3 (pt refuses pnb, give ketamine and lidocaine gtt) Modified [place] Scale for Level of Consciousness: Cooperative, oriented, and tranquil Anesthetic Plan: General Monitoring Plan: Standard Monitors Recovery Plan: PACU
[2017-03-17] MEDS ORDERED: CloNIDine Patch 0.1 MG PATCH (WEEKLY) TD ONE (09:45)
--- NOTE | 2017-03-17 10:24 | History & Physical Report ---
Date of Encounter: 03/17/17 Time of Encounter: 10:24 24 Hour HP Update - Instructions Instructions: If the History and Physical is less than 30 days old and was completed prior to A.M. admission and or procedure and has NOT been updated on calendar day of procedure please complete this update prior to performing procedure. - Update Patient reports changes in Medical Condition: No Changes in examination, assessment, or condition: No Changes in Medication: No Preop tests/diagnostics Reviewed: Yes Surgery Remains Indicated: Yes Consent for Planned Operative Procedure(s) Verified: Yes - Pre-Operative Checklist Preoperative Checklist Indicated: No Prophylactic Antibiotic Ordered: Yes Is VTE Prophylaxis Indicated?: Yes
[2017-03-17] MEDS ORDERED: *HR* Midazolam HCl 2 MG/2 ML VIAL ONE (10:59)
[2017-03-17] MEDS ORDERED: *HR* Propofol 200 MG/20 ML VIAL IVP ONE (11:00)
[2017-03-17] MEDS ORDERED: *HR* FentaNYL (PF) 100 MCG/2 ML VIAL ONE (11:00)
[2017-03-17] MEDS ORDERED: Ketamine *HR* 500 MG/10 ML MDV ONE (11:01)
[2017-03-17] MEDS ORDERED: Ondansetron 4 MG/2 ML VIAL IVP PRN ×2 (11:04→15:13)
[2017-03-17] MEDS ORDERED: *HR* Succinylcholine 200 MG/10 ML VIAL IVP ONE (11:08)
[2017-03-17] MEDS ORDERED: Lidocaine -MPF 2% 2 ML VIAL ONE (11:08)
[2017-03-17] MEDS ORDERED: Clindamycin 900 MG/50 ML 900 MG/50 ML IV.SOLN IVPB ONE (12:17)
[2017-03-17] MEDS ORDERED: Ondansetron 4 MG/2 ML VIAL ONE (12:54)
[2017-03-17] MEDS ORDERED: Dexamethasone 4 MG/ML VIAL ONE (12:54)
--- NOTE | 2017-03-17 13:06 | Orthopedic Operative Note ---
Date of procedure: 03/17/17 Pre-op diagnosis: Right knee arthritis Post-op diagnosis: same Procedure: Procedure: Right Total knee replacement Estimated blood loss: 400 cc Hardware: Metal and polyethylene replacement: Biomet Femur: 75, 22 x 120 stem Tibia: 83, 14 x 80 stem Kelly insert: 16 Patella: 40 Exam Under anesthesia: Full flexion and extension no gross instability Procedural Notes: Grade 4 arthritic changes all 3 compartments. Operative procedure: The patient was brought to the operating room and placed on the operating room table. After general anesthesia was administered the operative knee was examined. Findings were noted in the exam under anesthesia. The operative extremity was prepped and draped in sterile surgical fashion. The patient received IV antibiotics prior to skin incision. A standard midline incision was made centered over the patella. The incision was made through the skin and subcutaneous tissue. A medial parapatellar tendon approach was performed. Care was taken to preserve tissue along the medial aspect of the patella. And to protect the patella tendon. The deep MCL was released off the medial tibia. The infra patella fat pad was excised. Knee was brought into flexion. Patient noted to have grade 4 arthritic changes all 3 compartments. The entry hole was made for the intramedullary femoral guide. The guide was seated in 6 degrees of valgus. Anterior cut was made followed by the distal cut. The PCL the medial and the lateral menisci were excised. The tibia was subluxed forward. The entry hole was made for the intramedullary tibial guide. Guide was seated to resect 2 mm off the more abnormal side. The knee was brought into flexion the distal femur was sized to a 75 The femur was first reamed to a 22 x 120 The femoral guide was seated, the anterior cut was made followed by the posterior condylar cut, followed by the chamfer cuts. The finishing guide was seated the box cut was made. Trial had good fit and fixation The tibia was sized to a an 83 The tibia was first reamed 14 x 80 Trial reduction revealed full extension no varus valgus instability with the appropriate 16 insert. The patella was everted and cut was made at the level of the insertion of the quadriceps and patella tendon. The patella was sized to a 40 the guide was seated and the lug holes are drilled. Trial reduction revealed excellent patella tracking. All trial components were removed all bony surfaces were irrigated. Components were assembled on the back table. The femur was cemented first followed by the tibia. The 16 Kelly was seated and secured. The knee was brought into full extension. The patella was cemented and held in place with the patellar holding clamp. After the cement had hardened, the knee sat for 2 minutes with a Betadine saline solution. The knee was then irrigated out with 2 L of pulse irrigation. Anesthesia: GETA Surgeon: Thiago Sweeney Condition: stable Disposition: PACU
[2017-03-17] MEDS: *HR* HYDROmorphone (PF) 1 MG/ML SYRINGE IVP PRN ×5 (13:54→15:36)
[2017-03-17] MEDS ORDERED: *HR* Morphine 2 MG/ML SYRINGE IVP PRN (14:12)
[2017-03-17] MEDS ORDERED: *HR* Morphine 10 MG/ML VIAL ONE (14:15)
[2017-03-17 14:25] LABS: Hematocrit 42.9 % (37.5-50.1); Hemoglobin 14.5 g/dL (12.9-16.9)
--- NOTE | 2017-03-17 14:47 | Anesthesia Evaluation Post Op ---
Date of Encounter: 03/17/17 Time of Encounter: 14:46 - Vital Signs Vital Signs: Vital Signs/O2 Sat/Glucose, Most Current Temp Pulse Resp BP Pulse Ox 03/17/17 14:35 97.0 F L 82 18 155/77 98 03/17/17 14:25 73 14 157/77 99 03/17/17 14:15 79 16 154/79 100 03/17/17 14:05 97.2 F L 80 16 147/81 100 03/17/17 13:55 80 16 142/77 100 03/17/17 13:45 79 24 138/79 97 03/17/17 13:35 99.0 F 75 12 118/66 90 03/17/17 11:47 85 16 141/80 96 - Lungs Lungs: Clear Ascult./Percussion - Airway Airway: Non-obstructed - Cardiovascular Regular Rate - Mental Status Mental Status: Alert & Oriented, Answers Appropriately - Pain Pain Scale: 5 - Nausea Vomiting Nausea Vomiting: Not Present - Hydration Hydration: Ice chips - Discharge PostOp Status: Transfer Patient to floor
[2017-03-17] MEDS ORDERED: Naloxone 0.4 MG/ML INJ IVP PRN (15:13)
[2017-03-17] MEDS ORDERED: Temazepam 15 MG CAPSULE PO PRN (15:13)
[2017-03-17] MEDS ORDERED: Ringers Solution, Lactated 1,000 ML IVC SCH (15:13)
[2017-03-17] MEDS ORDERED: Sennosides 8.6 MG TABLET PO PRN (15:13)
[2017-03-17] MEDS ORDERED: MOM Conc 10 ML UD.LIQ PO PRN (15:13)
[2017-03-17] MEDS ORDERED: Dextrose Gel 15 GM PO PRN ×2 (15:13)
[2017-03-17] MEDS ORDERED: *HR* OxyCODONE Immed Rel 5 MG TABLET PO PRN (15:13)
[2017-03-17] MEDS ORDERED: *HR* Dextrose 50 % in Water (Syg) 50 ML SYRINGE IVP PRN (15:13)
[2017-03-17] MEDS ORDERED: D5% in Water 1,000 ML IVC PRN (15:13)
[2017-03-17] MEDS ORDERED: *HR* Warfarin 5 MG TABLET PO SCH (15:13)
[2017-03-17] MEDS: Insulin LISPRO 300 UNITS/3 ML VIAL SQ SCH ×2 (17:04→21:39)
[2017-03-17] MEDS: *HR* Enoxaparin 30 MG/0.3 ML SYRINGE SQ SCH (17:04)
[2017-03-17] MEDS: Clindamycin 900 MG/50 ML 900 MG/50 ML IV.SOLN IVPB SCH (17:05)
[2017-03-17] MEDS: *HR* OxyCODONE Immed Rel 5 MG TABLET PO PRN (17:39)
[2017-03-17] MEDS ORDERED: *HR* Enoxaparin 30 MG/0.3 ML SYRINGE SQ SCH (18:00)
[2017-03-17] MEDS ORDERED: Insulin DETEMIR 100 UNIT/ML X5UNITS SQ SCH (21:00)
[2017-03-17] MEDS: *HR* GlipiZIDE 5 MG TABLET PO SCH (21:39)
[2017-03-17] MEDS: *HR* Metformin 500 MG TABLET PO SCH (21:39)
[2017-03-18] MEDS: *HR* OxyCODONE Immed Rel 5 MG TABLET PO PRN ×4 (00:05→18:12)
[2017-03-18] MEDS: Clindamycin 900 MG/50 ML 900 MG/50 ML IV.SOLN IVPB SCH (00:05)
[2017-03-18 05:15] LABS: Hematocrit 38.8 % (37.5-50.1)
[2017-03-18 05:16] LABS: Hemoglobin 12.5 g/dL (12.9-16.9)
[2017-03-18 05:26] LABS: BUN/Creatinine Ratio 23 (6-26); Blood Urea Nitrogen 27 mg/dL (8-26); Calcium 8.4 mg/dL (8.6-10.8); Carbon Dioxide 25 mEq/L (19-29); Chloride 103 mEq/L (98-109); Glucose 230 mg/dL (70-99); Osmolality,Calculated 296 (280-300); Potassium 4.5 mEq/L (3.5-4.5); Sodium 137 mEq/L (136-145); eGFR For African Americans > 60 (> 60); eGFR For Non-African Americans > 60 (> 60)
[2017-03-18] MEDS: *HR* Enoxaparin 30 MG/0.3 ML SYRINGE SQ SCH ×2 (05:34→16:16)
[2017-03-18] MEDS: amLODIPine 5 MG TABLET PO SCH (07:14)
[2017-03-18] MEDS: Valsartan 160 MG TABLET PO SCH (07:14)
[2017-03-18] MEDS: Multivit/Ca/Min/Fe/FA 1 TAB TABLET PO SCH (07:15)
[2017-03-18] MEDS: *HR* Metformin 500 MG TABLET PO SCH ×2 (07:15→20:56)
[2017-03-18] MEDS: *HR* GlipiZIDE 5 MG TABLET PO SCH ×2 (07:15→20:56)
[2017-03-18] MEDS: Aspirin Enteric Coated 81 MG Tablet PO SCH (07:15)
[2017-03-18] MEDS: Furosemide 40 MG TABLET PO SCH (07:15)
[2017-03-18 07:42] LABS: INR 1.2; Prothrombin Time 13.1 Seconds (9.4-12.1)
--- NOTE | 2017-03-18 07:46 | Orthopedics Progress Note ---
Date of Encounter: 03/18/17 Time of Encounter: 07:45 - Assessment and Plan (1) History of DVT (deep vein thrombosis) Current Visit: No Status: Chronic (2) HTN (hypertension) Current Visit: No Status: Chronic Qualifiers: Hypertension type: unspecified secondary hypertension Qualified Code(s): I15.9 - Secondary hypertension, unspecified; I15 - Secondary hypertension (3) DMII (diabetes mellitus, type 2) Current Visit: No Status: Chronic Qualifiers: Diabetes mellitus complication status: with unspecified complications Diabetes mellitus clinical operations specialist insulin use: with clinical operations specialist use Qualified Code(s) : E11.8 - Type 2 diabetes mellitus with unspecified complications; Z79.4 - pest control chemical technician (current) use of insulin (4) HLD (hyperlipidemia) Current Visit: No Status: Chronic Qualifiers: Hyperlipidemia type: unspecified Qualified Code(s): E78.5 - Hyperlipidemia , unspecified (5) Obesity Current Visit: No Status: Chronic Qualifiers: Obesity type: unspecified obesity type Obesity severity: morbid Qualified Code(s): E66.01 - Morbid (severe) obesity due to excess calories (6) Arthritis of right knee Current Visit: Yes Status: Chronic (7) Factor V Leiden Current Visit: Yes Status: Chronic (8) History of pulmonary embolism Current Visit: Yes Status: Chronic Subjective Interval history: Patient was seen this morning doing well without complaints. Afebrile vital signs stable. Operative extremity: Neurovascularly intact Dressing clean dry and intact Calves nontender Assessment and plan: Continue with postoperative care Hematocrit 38 planned for discharge home tomorrow Objective Vital signs: Vital Signs Temp Pulse Resp BP Pulse Ox 03/18/17 06:47 98.0 F 84 18 130/72 93 03/18/17 03:44 98.6 F 91 17 134/75 93 03/18/17 00:22 98 F 82 15 147/74 94 03/17/17 18:10 97.8 F 79 12 151/88 93 03/17/17 17:10 97.8 F 89 14 158/84 95 03/17/17 16:10 97.5 F L 86 12 144/73 85 03/17/17 15:42 98.5 F 84 14 155/76 92 03/17/17 15:10 98.2 F 81 14 143/70 96 03/17/17 14:55 97.0 F L 71 12 148/82 96 03/17/17 14:45 97.0 F L 81 11 150/79 99 03/17/17 14:35 97.0 F L 82 18 155/77 98 03/17/17 14:25 73 14 157/77 99 03/17/17 14:15 79 16 154/79 100 03/17/17 14:05 97.2 F L 80 16 147/81 100 03/17/17 13:55 80 16 142/77 100 03/17/17 13:45 79 24 138/79 97 03/17/17 13:35 99.0 F 75 12 118/66 90 03/17/17 11:47 85 16 141/80 96 03/17/17 08:53 98.2 F 101 18 135/85 95 Intake and Output 03/17/17 03/17/17 03/18/17 15:59 23:59 07:59 Intake Total 1000 / 1000 290 / 290 0 / 0 Output Total 400 / 400 750 / 750 550 / 550 Balance 600 / 600 -460 / -460 -550 / -550 Intake: IV Fluids 1000 / 1000 50 / 50 Lactated Ringers 1,000 ML 1000 / 1000 @ 25 mls/hr IVC .Q24H [facility] Rx#:[id number] Cleocin Premix 900 MG/50 50 / 50 ML 900 mg In 50 ml @ 50 mls/hr IVPB Q8HR [facility] Rx#: [id number] Oral 0 / 0 240 / 240 0 / 0 Output: Urine 750 / 750 550 / 550 Estimated Blood Loss 400 / 400 Other: Meal Dinner Percent of Meal Consumed 25% Weight 138.346 kg Blood Glucose* 221 285 - Labs CBC & BMP: 03/18/17 04:51 03/18/17 04:51 Labs: Abnormal lab results Hgb 12.5 g/dL (12.9-16.9) L D 03/18/17 04:51 BUN 27 mg/dL (8-26) H 03/18/17 04:51 Glucose 230 mg/dL (70-99) H 03/18/17 04:51 POC Glucose 285 (58-89) H 03/17/17 21:32 Calcium 8.4 mg/dL (8.6-10.8) L 03/18/17 04:51 - VTE Documentation of Mechanical Device: Venous foot pump, device Consult Discharge Plan - Plan Referrals: Gladis Delacruz, PAC [Physician Outsoles Channel Opener] - 03/30/17 2:00 pm Pramod Ordonez DO [Primary Care Provider] -
[2017-03-18] MEDS: Insulin LISPRO 300 UNITS/3 ML VIAL SQ SCH ×4 (08:06→20:59)
[2017-03-18] MEDS ORDERED: *HR* Warfarin 5 MG TABLET PO SCH ×2 (10:38→21:00)
--- NOTE | 2017-03-18 12:47 | Physician Discharge Referral ---
ExtendedCare Referral Info Transfer To: F Provider in Charge: Institutional Level of Care: Skilled - Diagnosis (1) Status post total knee replacement, right Priority: Primary Status: Acute (2) Arthritis of right knee Priority: Primary Status: Chronic (3) Factor V Leiden Status: Chronic (4) History of DVT (deep vein thrombosis) Priority: Secondary Status: Chronic (5) HTN (hypertension) Priority: Secondary Status: Chronic (6) DMII (diabetes mellitus, type 2) Priority: Secondary Status: Chronic (7) HLD (hyperlipidemia) Priority: Secondary Status: Chronic (8) Obesity Priority: Secondary Status: Chronic Expected Duration of Placement: 30 days Prognosis: Good Aware of Diagnosis: Patient Aware of Prognosis: Patient - Transfer Medications Home Medications: Amlodipine Besylate 10 mg PO DAILY 11/25/16 [History] Aspirin Enteric Coated [Aspirin EC] 81 mg PO DAILY 11/25/16 [History] Atorvastatin Calcium [Lipitor] 20 mg PO DAILY 11/25/16 [History] Furosemide [Lasix] 40 mg PO DAILY 11/25/16 [History] Insulin Glargine,Hum.rec.anlog [Lantus Solostar] 80 unit SQ HS 11/25/16 [History ] Metformin HCl [Glucophage] 1,000 mg PO BID 11/25/16 [History] Multivitamin [One Daily Multivitamin] 1 each PO DAILY 11/25/16 [History] Valsartan [Diovan] 320 mg PO DAILY 11/25/16 [History] Warfarin [Coumadin] 10 mg PO SUTHFRSA 11/25/16 [History] Warfarin [Coumadin] 15 mg PO MOTUWE 11/25/16 [History] glipiZIDE [Glipizide] 10 mg PO BID 11/25/16 [History] Enoxaparin [Lovenox] 30 mg SQ Q12HR #10 syr 03/17/17 [Rx] OxyCODONE Immed Rel [Roxicodone 5 MG] 5 - 10 mg PO Q6HR PRN #40 tablet 03/17/17 [Rx] Allergies/Adverse Reactions: Allergies cephalexin [From Keflex] Allergy (Verified 03/17/17 09:38) Hives Penicillins [PCN] Allergy (Verified 03/17/17 09:38) Hives meloxicam Adverse Reaction (Verified 03/17/17 09:38) See Comments causes lymphedema pioglitazone [From Actos] Adverse Reaction (Verified 03/17/17 09:38) See Comments retains water - Respiratory Orders None Smoking Cessation: Smoking cessation has been advised. For more information, call the [place] Tobacco Quit Line at 6-316-XRZJ-NOW. - Ancillary Orders May use pressure relief devices daily prn, May go on JOYCE w/family/respon democrat w /meds at nurse discretion PRN, May consult with Dentist, Rn Eligibility, Investigation Division Lieutenant PRN - Mobility Orders Ambulate - Rehabiliation Orders Rehab Potential: Good Rehab Orders: ROM Exercises, Evaluation for Physical Therapy, Evaluation for Occupational Therapy Other: Total Knee replacement Precautions x 6 weeks Apply cold therapy wrap 3-6x/day for 20 minutes at a time. Encourage ambulation throughout the day and incentive spirometer 10x/hour. Elevate affected extremity above heart as tolerated. Brace: Wear knee immobilizer at night x 2 weeks. - Treatments List/Other: Opsite dressing, leave intact until first post-operative visit. If dressing becomes >50% saturated, contact office, remove dressing and place appropriate dressing in its place. Do not allow for dressing to get wet. Samira in place, plan to remove at post-operative day #14-16. - Diet Orders Regular CERTIFICATION: I certify that the transfer of the above named patient to an Extended Care Facility is necessary for the continuing treatment of the diagnosis listed. The above information is true and accurate reflection of patient's current condition. Confidential - Redisclosure prohibited without a patient's written consent.
[2017-03-18] MEDS: LANTUS INSULIN SQ SCH (20:58)
[2017-03-19 01:49] LABS: Hematocrit 37.2 % (37.5-50.1); Hemoglobin 12.3 g/dL (12.9-16.9)
[2017-03-19 01:52] LABS: INR 1.5; Prothrombin Time 16.2 Seconds (9.4-12.1)
[2017-03-19 02:04] LABS: BUN/Creatinine Ratio 21 (6-26); Blood Urea Nitrogen 27 mg/dL (8-26); Calcium 8.6 mg/dL (8.6-10.8); Carbon Dioxide 25 mEq/L (19-29); Chloride 103 mEq/L (98-109); Glucose 189 mg/dL (70-99); Osmolality,Calculated 294 (280-300); Potassium 3.8 mEq/L (3.5-4.5); Sodium 137 mEq/L (136-145); eGFR For African Americans > 60 (> 60); eGFR For Non-African Americans 57 (> 60)
[2017-03-19] MEDS: *HR* Enoxaparin 30 MG/0.3 ML SYRINGE SQ SCH ×2 (05:31→16:45)
[2017-03-19] MEDS: *HR* OxyCODONE Immed Rel 5 MG TABLET PO PRN ×3 (05:44→17:30)
[2017-03-19] MEDS: Insulin LISPRO 300 UNITS/3 ML VIAL SQ SCH ×4 (09:18→20:24)
[2017-03-19] MEDS: amLODIPine 5 MG TABLET PO SCH (09:19)
[2017-03-19] MEDS: Furosemide 40 MG TABLET PO SCH (09:19)
[2017-03-19] MEDS: *HR* GlipiZIDE 5 MG TABLET PO SCH ×2 (09:19→20:23)
[2017-03-19] MEDS: Valsartan 160 MG TABLET PO SCH (09:19)
[2017-03-19] MEDS: Aspirin Enteric Coated 81 MG Tablet PO SCH (09:19)
[2017-03-19] MEDS: Multivit/Ca/Min/Fe/FA 1 TAB TABLET PO SCH (09:19)
[2017-03-19] MEDS: *HR* Metformin 500 MG TABLET PO SCH ×2 (09:19→20:23)
[2017-03-19] MEDS: *HR* HYDROmorphone (PF) 1 MG/ML SYRINGE IVP PRN (11:26)
--- NOTE | 2017-03-19 12:45 | Orthopedics Progress Note ---
Date of Encounter: 03/19/17 Time of Encounter: 07:45 - Assessment and Plan (1) Status post total knee replacement, right Current Visit: Yes Status: Acute POD#2 Patient was seen this morning doing well without complaints. Afebrile vital signs stable. Operative extremity: Neurovascularly intact Dressing clean dry and intact Calves nontender Assessment and plan: Continue with postoperative care H/H stable. Plan for D/C to ECF Wednesday. (2) Arthritis of right knee Current Visit: Yes Status: Chronic (3) Factor V Leiden Current Visit: Yes Status: Chronic (4) History of DVT (deep vein thrombosis) Current Visit: No Status: Chronic (5) HTN (hypertension) Current Visit: No Status: Chronic Qualifiers: Hypertension type: unspecified secondary hypertension Qualified Code(s): I15.9 - Secondary hypertension, unspecified; I15 - Secondary hypertension (6) DMII (diabetes mellitus, type 2) Current Visit: No Status: Chronic Qualifiers: Diabetes mellitus complication status: with unspecified complications Diabetes mellitus watermelon harvesting supervisor insulin use: with watermelon harvesting supervisor use Qualified Code(s) : E11.8 - Type 2 diabetes mellitus with unspecified complications; Z79.4 - longterm (current) use of insulin (7) HLD (hyperlipidemia) Current Visit: No Status: Chronic Qualifiers: Hyperlipidemia type: unspecified Qualified Code(s): E78.5 - Hyperlipidemia , unspecified (8) Obesity Current Visit: No Status: Chronic Qualifiers: Obesity type: unspecified obesity type Obesity severity: morbid Qualified Code(s): E66.01 - Morbid (severe) obesity due to excess calories Subjective Principal diagnosis: Right TKR Interval history: Patient was seen this morning doing well without complaints. Afebrile vital signs stable. Operative extremity: Neurovascularly intact Dressing clean dry and intact Calves nontender Assessment and plan: Continue with postoperative care H/H stable. Plan for D/C to ECF Wednesday. Objective Vital signs: Vital Signs Temp Pulse Resp BP Pulse Ox 03/19/17 11:40 98 F 86 16 137/75 94 03/19/17 07:03 98 F 90 18 143/71 03/19/17 00:37 99.6 F 103 15 175/75 94 03/18/17 20:54 98.7 F 114 19 147/70 97 03/18/17 16:00 98.6 F 102 20 125/69 91 Intake and Output 03/18/17 03/19/17 03/19/17 23:59 07:59 15:59 Intake Total 360 / 360 Output Total 500 / 500 200 / 200 Balance -500 / -500 160 / 160 Intake: Oral 360 / 360 Output: Urine 500 / 500 200 / 200 Other: Meal Breakfast Percent of Meal Consumed 90% Blood Glucose* 276 131 198 Incision: clean and dry - Labs CBC & BMP: 03/19/17 01:07 03/19/17 01:07 Labs: Abnormal lab results Hgb 12.3 g/dL (12.9-16.9) L 03/19/17 01:07 Hct 37.2 % (37.5-50.1) L 03/19/17 01:07 PT 16.2 Seconds (9.4-12.1) H 03/19/17 01:07 BUN 27 mg/dL (8-26) H 03/19/17 01:07 Creatinine 1.27 mg/dL (0.72-1.25) H 03/19/17 01:07 Est GFR (Non-Af Amer) 57 (> 60) L 03/19/17 01:07 Glucose 189 mg/dL (70-99) H 03/19/17 01:07 POC Glucose 198 (58-89) H 03/19/17 11:43 - VTE Documentation of Mechanical Device: Venous foot pump, device Consult Discharge Plan - Plan Referrals: Gladis Delacruz PAC [Physician Religious Assistant] - 03/30/17 2:00 pm Pramod Ordonez DO [Primary Care Provider] -
[2017-03-19] MEDS: LANTUS INSULIN SQ SCH (20:24)
[2017-03-20] MEDS: *HR* OxyCODONE Immed Rel 5 MG TABLET PO PRN ×2 (05:13→10:39)
[2017-03-20] MEDS: *HR* Enoxaparin 30 MG/0.3 ML SYRINGE SQ SCH (05:13)
[2017-03-20 06:58] VITALS: BP 118/76
[2017-03-20] MEDS: Valsartan 160 MG TABLET PO SCH (07:31)
[2017-03-20] MEDS: *HR* GlipiZIDE 5 MG TABLET PO SCH (07:31)
[2017-03-20] MEDS: *HR* Metformin 500 MG TABLET PO SCH (07:31)
[2017-03-20] MEDS: Aspirin Enteric Coated 81 MG Tablet PO SCH (07:31)
[2017-03-20] MEDS: Insulin LISPRO 300 UNITS/3 ML VIAL SQ SCH (07:32)
[2017-03-20] MEDS: Multivit/Ca/Min/Fe/FA 1 TAB TABLET PO SCH (07:32)
[2017-03-20] MEDS: Furosemide 40 MG TABLET PO SCH (07:32)
[2017-03-20] MEDS: amLODIPine 5 MG TABLET PO SCH (07:32)
--- NOTE | 2017-03-20 10:10 | Orthopedics Progress Note ---
Date of Encounter: 03/20/17 Time of Encounter: 10:09 Subjective Principal diagnosis: Right TKR Interval history: Post op day 3. Patient was seen this morning doing well without complaints. Afebrile vital signs stable. Operative extremity: Neurovascularly intact Dressing clean dry and intact Calves nontender Assessment and plan: Continue with postoperative care H/H stable. Plan for D/C to ECF today. Objective Vital signs: Vital Signs Temp Pulse Resp BP Pulse Ox 03/20/17 06:33 98.3 F 97 16 118/76 98 03/20/17 00:11 98.5 F 100 17 160/75 91 03/19/17 20:48 98.9 F 104 17 163/78 93 03/19/17 16:19 98 F 97 14 136/75 93 03/19/17 11:40 98 F 86 16 137/75 94 Intake and Output 03/19/17 03/20/17 03/20/17 23:59 07:59 15:59 Intake Total 440 / 440 240 / 240 Output Total 250 / 250 650 / 650 Balance 190 / 190 -650 / -650 240 / 240 Intake: Oral 440 / 440 240 / 240 Output: Urine 250 / 250 650 / 650 Other: Meal Dinner Breakfast Percent of Meal Consumed 100% 75% Blood Glucose* 223 103 - Labs CBC & BMP: 03/19/17 01:07 03/19/17 01:07 Labs: Abnormal lab results Hgb 12.3 g/dL (12.9-16.9) L 03/19/17 01:07 Hct 37.2 % (37.5-50.1) L 03/19/17 01:07 PT 16.2 Seconds (9.4-12.1) H 03/19/17 01:07 BUN 27 mg/dL (8-26) H 03/19/17 01:07 Creatinine 1.27 mg/dL (0.72-1.25) H 03/19/17 01:07 Est GFR (Non-Af Amer) 57 (> 60) L 03/19/17 01:07 Glucose 189 mg/dL (70-99) H 03/19/17 01:07 POC Glucose 103 (58-89) H 03/20/17 07:30 - VTE Documentation of Mechanical Device: Venous foot pump, device Consult Discharge Plan - Plan Additional Instructions: Discharge Instructions: Total Knee Replacement Please call [facility] ([phone]), your Primary Care Physician, or report to the Emergency Room if you have any of the following symptoms: Nausea, vomiting, fever greater that 101.5, swelling, chest pain, shortness of breath, increased pain/redness/drainage/odor for your incision site, numbness/ tingling, or any other concerning symptoms. ACTIVITY:Weight-bearing as tolerated. You may progress off support (crutches or walker) as tolerated. MEDICATIONS: Upon discharge resume your home medications. Take all the medications as prescribed. Take a stool softener if taking narcotic pain medications. Stool softeners are only effective if you drink enough fluids. Drink 6-8 glass of water or fluids a day, unless this is not allowed for another health problem. Despite using stool softeners, if you haven't had a bowel movement in 3 days, please switch to a gentle laxative. Gentle laxatives are sold over the counter. You should have a bowel movement within 24 hours, if not call the office. You will be discharged from the hospital with a prescription for pain medication. You are encouraged to decrease the use of narcotic pain medication as tolerated. Should you require a refill, please call the office. [facility] prescribes narcotic pain medication for only 4-6 weeks after surgery. If you require pain medication beyond this time period, you may be referred to your Primary Care Physician or to the Pain Clinic for further evaluation. Plan ahead for refills on pain medication as many narcotics either need to be picked up at the office or mailed. It is best to call 48-72 hours in advance of needing a prescription refill so you don't run out of medication. To help control the post-operative pain, you may take NSAIDs (Aleve,Advil, Motrin, Ibuprofen, Naprosyn) or Tylenol as prescribed on the bottle in addition to the pain medication. ANTICOAGULATION (blood thinners): Continue your Aspirin, Lovenox or Coumadin as prescribed to help prevent a blood clot in the leg or in the lungs. As long as your incision remains dry and you tolerate the NSAIDs (Aleve, Advil, Motrin, ibuprofen, naprosyn), it is OK to use the NSAIDS while you are taking your anticoagulation medication. Should your incision start to drain, stop the NSAID and contact our office. Common symptoms of blood clot in the legs include: localized pain, swelling, calf tenderness, redness or discoloration of the skin. Blood clot in the lung symptoms include: shortness of breath, rapid pulse, sweating, and chest pain that worsens with deep breathing, coughing up blood, lightheadedness, feelings of anxiety. If you experience any of these symptoms notify your physician immediately, go to the emergency room, or if having trouble breathing, call 911. WOUND CARE: Leave the dressing on for 7 to 10days. You may change the dressing if it becomes saturated greater than 50%. Do not get the dressing wet at anytime. Wash your hands with antibacterial soap, rinse and dry prior to any wound care. If you have ronn the visiting nurse or rehab facility can remove the stapes 10-14 days after surgery and place steri-strips across the wound. Leave the steri-strips in place until they fall off on their won. You may let water from the shower run on top of the steri-strips. If you do not have a visiting nurse or rehab facility, you will need to return to the office at 10-14 days for the ronn to be removed. If you have itching or redness around the dressing call the office. FOLLOW-UP: Please follow up with your surgeon in the orthopedic clinic in 4 weeks from the day of surgery. If you have ronn that need to be removed, you will need to come back to the office in 10-14 days from the day of surgery. Referrals: Gladis Delacruz PAC [Physician Coating Mixer Supervisor] - 03/30/17 2:00 pm Pramod Ordonez DO [Primary Care Provider] -
[2017-03-22] MEDS ORDERED: *HR* Warfarin 5 MG TABLET PO SCH (21:00)
== END 2017-03-20 11:00 | disposition other institution (70) ==
LOC: SAMDAY 08:27 → 3NENU 15:22
PROVIDERS: ADMIT Orthopaedic Surgery; ATTEND Orthopaedic Surgery